=== PATIENT | female | born 1995 | race Caucasian/White ===

== ENCOUNTER → 2017-10-27 | Outpatient (CLI) | payer OTHER ==
[~2017-10-27] MED LIST: ALBU90OI INH; AMOCLA500 PO; AMPDEX10CR PO; AMPDEX5 PO; Adderall 20 MG20 MG PO; Amitriptyline H10 MG PO; Amoxicillin500 MG PO; Augmentin 875-1 EACH PO; BC IMPLANT; CEPH500 PO; CIPRO500 MG PO; CYCL10 PO; Clotrimazole-Be15 GM TP; Crutch1 EACH MISC; Cyclobenzaprine5 MG PO; DESV50 PO; DIPATR PO; DOXY100 PO; FLUC150A PO; GABA300 PO; HYDPAM25 PO; HYDR1TAB94 PO; IBUP600 PO; IBUP800 PO; Keflex500 MG PO; Kristalose20 GM PO; LIDO700A20 TOP; LOPE2C PO; LORA1 PO; MECL12.5 PO; METR500 PO; Minipress1 MG PO; NAPR500ERA PO; NAPROXEN PO; Naprosyn500 MG PO; Norco 10-325 T1 EACH PO; PRAZ1 PO; PRODEXEL PO; Percocet 5-3251 EACH PO; Prednisone20 MG PO; Pyridium200 MG PO; QUET200 PO; QUET25 PO; Robaxin500 MG PO; SERT50 PO; TRAM50 PO; TRAZ100 PO; TRAZ50; Valium5 MG PO; Vibramycin100 MG PO; Vistaril25 MG PO; ZYRTEC10 M1 PO; Zithromax250 MG PO; Zofran Odt4 MG PO; Zofran4 MG PO; [UNRECOGNIZED DRUG - OTHER] RC
[2017-10-27 15:26] LABS: BASOPHILS ABSOLUTE AUTO 0.09 K/mm3 (0.00-0.23); BASOPHILS PERCENT AUTO 1 % (0-2); EOSINOPHILS ABSOLUTE AUTO 0.56 K/mm3 (0.00-0.68); EOSINOPHILS PERCENT AUTO 6 % (0-6); Hematocrit 40.7 % (33.0-51.0); Hemoglobin 14.1 g/dL (11.5-16.0); IMMATURE GRAN ABSOLUTE AUTO 0.02 K/mm3 (0.00-0.10); IMMATURE GRAN PERCENT AUTO 0 % (0-1); LYMPHOCYTES ABSOLUTE AUTO 2.23 K/mm3 (0.84-5.20); LYMPHOCYTES PERCENT AUTO 23 % (21-46); MONOCYTES ABSOLUTE AUTO 0.61 K/mm3 (0.16-1.47); MONOCYTES PERCENT AUTO 6 % (4-13); Mean Corpuscular HGB 30.5 pg (26.0-34.0); Mean Corpuscular HGB Conc 34.6 g/dL (31.5-36.5); Mean Corpuscular Volume 88 fL (80-100); Mean Platelet Volume 10.9 fL (9.1-12.4); NEUTROPHILS ABSOLUTE AUTO 6.04 K/mm3 (1.96-9.15); NEUTROPHILS PERCENT AUTO 63 % (41-73); Platelet Count 229 K/mm3 (150-400); RDW Standard Deviation 41.4 fL (35.1-46.3); Red Blood Cell Count 4.63 M/mm3 (3.80-5.20); White Blood Cell Count 9.55 K/mm3 (4.00-11.30)
== END | disposition home or self-care (01) ==
LOC: LAB EV 15:23
PROVIDERS: Physician Assistant
DX: N39.0 Urinary tract infection, site not specified (principal); R10.31 Right lower quadrant pain
CPT/HCPCS: 85025; 87086

== ENCOUNTER 2017-10-30 12:23 | Emergency (ER) | payer OTHER ==
[~2017-10-30] VITALS: Ht 170.2 cm; Wt 120.2 kg
[~2017-10-30 12:23] MED LIST changes: -AMOCLA500 PO; -AMPDEX10CR PO; -Augmentin 875-1 EACH PO; -Cyclobenzaprine5 MG PO; -HYDPAM25 PO; -LIDO700A20 TOP; -LORA1 PO; -MECL12.5 PO; -NAPROXEN PO; -PRAZ1 PO; -Robaxin500 MG PO; -Valium5 MG PO
[2017-10-30 14:47] LABS: BASOPHILS ABSOLUTE AUTO 0.07 K/mm3 (0.00-0.23); BASOPHILS PERCENT AUTO 1 % (0-2); EOSINOPHILS ABSOLUTE AUTO 0.35 K/mm3 (0.00-0.68); EOSINOPHILS PERCENT AUTO 5 % (0-6); Hemoglobin 14.5 g/dL (11.5-16.0); IMMATURE GRAN ABSOLUTE AUTO 0.02 K/mm3 (0.00-0.10); IMMATURE GRAN PERCENT AUTO 0 % (0-1); LYMPHOCYTES ABSOLUTE AUTO 1.63 K/mm3 (0.84-5.20); LYMPHOCYTES PERCENT AUTO 22 % (21-46); MONOCYTES ABSOLUTE AUTO 0.56 K/mm3 (0.16-1.47); MONOCYTES PERCENT AUTO 8 % (4-13); Mean Corpuscular HGB Conc 33.7 g/dL (31.5-36.5); Mean Corpuscular Volume 89 fL (80-100); Mean Platelet Volume 10.5 fL (9.1-12.4); NEUTROPHILS ABSOLUTE AUTO 4.75 K/mm3 (1.96-9.15); NEUTROPHILS PERCENT AUTO 64 % (41-73); Platelet Count 215 K/mm3 (150-400); RDW Coefficient Variation 12.9 % (11.7-14.2); RDW Standard Deviation 42.3 fL (35.1-46.3); Red Blood Cell Count 4.83 M/mm3 (3.80-5.20); White Blood Cell Count 7.38 K/mm3 (4.00-11.30)
[2017-10-30 15:02] LABS: Alanine Aminotransfer (ALT/SGP 19 U/L (12-78); Alk Phos 79 U/L (50-136); Anion Gap 7 mmol/L (6-16); Aspartate Aminotrans (AST/SGOT 15 U/L (12-37); Bilirubin, Total 0.6 mg/dL (0.1-1.0); Blood Urea Nitrogen 10 mg/dL (8-24); Bun/Creatinine Ratio 10.8 (12.0-20.0); CO2, Blood 25 mmol/L (21-32); Calcium, Blood 9.4 mg/dL (8.5-10.1); Chloride, Blood 108 mmol/L (98-108); Creatinine, Blood 0.92 mg/dL (0.40-1.00); Globulin, Blood 3.9 g/dL (2.2-4.0); Glomerular Filtration Rate >60 (60-); Glucose, Blood 90 mg/dL (70-99); Potassium, Blood 3.8 mmol/L (3.5-5.5); Sodium, Blood 140 mmol/L (136-145); Total Protein, Blood 7.9 g/dL (6.4-8.2)
[2017-10-30] MEDS ORDERED: Valium5 MG PO (18:15)
[2017-10-30] MEDS ORDERED: MECL12.5 PO (18:15)
[2018-03-08] MEDS ORDERED: LORA1 PO (19:52)
[2018-03-08] MEDS ORDERED: Augmentin 875-1 EACH PO (21:20)
[2018-03-10] MEDS ORDERED: ALBU90OI INH (11:18)
[2018-03-10] MEDS ORDERED: NAPROXEN PO (11:21)
[2018-03-15] MEDS ORDERED: AMOCLA500 PO (09:15)
== END 2017-10-30 19:02 | disposition home or self-care (01) ==
LOC: ER 12:23
PROVIDERS: Physician Assistant
DX: S50.861A Insect bite (nonvenomous) of right forearm, initial encounter (principal); F32.9 Major depressive disorder, single episode, unspecified; F41.9 Anxiety disorder, unspecified; Z91.048 Other nonmedicinal substance allergy status; Z88.8 Allergy status to other drugs, medicaments and biological substances; Z79.899 Other long term (current) drug therapy; W57.XXXA Bitten or stung by nonvenomous insect and other nonvenomous arthropods, initial encounter
CPT/HCPCS: 36415; 80053; 85025; 99283; J3360

== ENCOUNTER 2017-12-04 16:39 | Emergency (ER) | payer OTHER ==
[~2017-12-04] VITALS: Ht 170.2 cm; Wt 74.8 kg
[~2017-12-04 16:39] MED LIST changes: +MECL12.5 PO; +Valium5 MG PO
[2018-03-08] MEDS ORDERED: LORA1 PO (19:52)
[2018-03-08] MEDS ORDERED: Augmentin 875-1 EACH PO (21:20)
[2018-03-10] MEDS ORDERED: ALBU90OI INH (11:18)
[2018-03-10] MEDS ORDERED: NAPROXEN PO (11:21)
[2018-03-15] MEDS ORDERED: AMOCLA500 PO (09:15)
== END 2017-12-04 18:49 | disposition home or self-care (01) ==
LOC: ER 16:39
DX: F90.9 Attention-deficit hyperactivity disorder, unspecified type (principal); F43.10 Post-traumatic stress disorder, unspecified; M79.7 Fibromyalgia; F32.9 Major depressive disorder, single episode, unspecified; F41.9 Anxiety disorder, unspecified; Z91.048 Other nonmedicinal substance allergy status; Z88.8 Allergy status to other drugs, medicaments and biological substances; Z79.899 Other long term (current) drug therapy
CPT/HCPCS: 93005; 93010; 99283

== ENCOUNTER 2017-12-06 04:09 | Emergency (ER) | payer OTHER ==
[~2017-12-06] VITALS: Ht 170.2 cm; Wt 120.2 kg
[2017-12-06] MEDS ORDERED: AMPDEX10CR PO (04:21)
[2017-12-06 05:06] LABS: Alanine Aminotransfer (ALT/SGP 16 U/L (12-78); Albumin, Blood 3.3 g/dL (3.4-5.0); Albumin/Globulin Ratio 0.9 (0.8-1.8); Alk Phos 74 U/L (50-136); Anion Gap 10 mmol/L (6-16); Aspartate Aminotrans (AST/SGOT 14 U/L (12-37); Bilirubin, Total 0.4 mg/dL (0.1-1.0); Blood Urea Nitrogen 14 mg/dL (8-24); Bun/Creatinine Ratio 16.3 (12.0-20.0); CO2, Blood 22 mmol/L (21-32); Calcium, Blood 8.1 mg/dL (8.5-10.1); Chloride, Blood 109 mmol/L (98-108); Creatinine, Blood 0.86 mg/dL (0.40-1.00); Globulin, Blood 3.7 g/dL (2.2-4.0); Glomerular Filtration Rate >60 (60-); Glucose, Blood 81 mg/dL (70-99); Potassium, Blood 3.3 mmol/L (3.5-5.5); Sodium, Blood 141 mmol/L (136-145)
[2017-12-06] MEDS ORDERED: Zofran Odt4 MG PO (05:08)
[2018-03-08] MEDS ORDERED: LORA1 PO (19:52)
[2018-03-08] MEDS ORDERED: Augmentin 875-1 EACH PO (21:20)
[2018-03-10] MEDS ORDERED: ALBU90OI INH (11:18)
[2018-03-10] MEDS ORDERED: NAPROXEN PO (11:21)
[2018-03-15] MEDS ORDERED: AMOCLA500 PO (09:15)
== END 2017-12-06 05:40 | disposition home or self-care (01) ==
LOC: ER 04:09
PROVIDERS: Emergency Medicine
DX: R11.2 Nausea with vomiting, unspecified (principal); R05 Cough; E87.6 Hypokalemia; Z88.8 Allergy status to other drugs, medicaments and biological substances; Z79.899 Other long term (current) drug therapy; F43.10 Post-traumatic stress disorder, unspecified; F32.9 Major depressive disorder, single episode, unspecified; F41.9 Anxiety disorder, unspecified
CPT/HCPCS: 36415; 80053; 96361; 96374; 99283; J1885; J7030

== ENCOUNTER 2017-12-10 02:51 | Emergency (ER) | payer OTHER ==
[~2017-12-10] VITALS: Ht 170.2 cm; Wt 121.6 kg
[~2017-12-10 02:51] MED LIST changes: +AMPDEX10CR PO
[2018-03-08] MEDS ORDERED: LORA1 PO (19:52)
[2018-03-08] MEDS ORDERED: Augmentin 875-1 EACH PO (21:20)
[2018-03-10] MEDS ORDERED: ALBU90OI INH (11:18)
[2018-03-10] MEDS ORDERED: NAPROXEN PO (11:21)
[2018-03-15] MEDS ORDERED: AMOCLA500 PO (09:15)
== END 2017-12-10 03:34 | disposition home or self-care (01) ==
LOC: ER 02:51
DX: J06.9 Acute upper respiratory infection, unspecified (principal); R42 Dizziness and giddiness; T40.2X5A Adverse effect of other opioids, initial encounter; Z88.8 Allergy status to other drugs, medicaments and biological substances; Z79.899 Other long term (current) drug therapy; F43.10 Post-traumatic stress disorder, unspecified; F32.9 Major depressive disorder, single episode, unspecified; F41.9 Anxiety disorder, unspecified
CPT/HCPCS: 99283

== ENCOUNTER → 2018-02-01 | Outpatient (CLI) | payer OTHER ==
[2018-02-03 20:22] LABS: Alpha Hyrdroxyalprazolam Not Detected (NOTDET); Alpha hydroxytriazolam Not Detected (NOTDET); Alprazolam Not Detected (NOTDET); Confirm Clonazepam LC/MS Not Detected (NOTDET); Confirm Flunitrazepam LC/MS Not Detected (NOTDET); Diazepam Not Detected (NOTDET); Flurazepam Not Detected (NOTDET); Lorazepam Not Detected (NOTDET); Midazolam Not Detected (NOTDET); Temazepam 68.8 ng/mL (NOTDET)
== END ==
LOC: LAB SHORT 18:20 → LAB 18:20
PROVIDERS: Registered Nurse Psychiatric/Mental Health
DX: Z51.81 Encounter for therapeutic drug level monitoring (principal); Z79.899 Other long term (current) drug therapy
CPT/HCPCS: G0480

== ENCOUNTER 2018-02-08 18:19 | Emergency (ER) | payer OTHER ==
[~2018-02-08] VITALS: Ht 170.2 cm; Wt 121.6 kg
[2018-02-08] MEDS ORDERED: HYDPAM25 PO (19:54)
[2018-02-08] MEDS ORDERED: PRAZ1 PO (19:55)
[2018-02-08 20:44] LABS: BASOPHILS ABSOLUTE AUTO 0.11 K/mm3 (0.00-0.23); BASOPHILS PERCENT AUTO 1 % (0-2); EOSINOPHILS ABSOLUTE AUTO 0.65 K/mm3 (0.00-0.68); EOSINOPHILS PERCENT AUTO 6 % (0-6); Hematocrit 42.6 % (33.0-51.0); Hemoglobin 14.1 g/dL (11.5-16.0); IMMATURE GRAN ABSOLUTE AUTO 0.02 K/mm3 (0.00-0.10); IMMATURE GRAN PERCENT AUTO 0 % (0-1); LYMPHOCYTES ABSOLUTE AUTO 2.66 K/mm3 (0.84-5.20); LYMPHOCYTES PERCENT AUTO 26 % (21-46); MONOCYTES ABSOLUTE AUTO 0.72 K/mm3 (0.16-1.47); MONOCYTES PERCENT AUTO 7 % (4-13); Mean Corpuscular HGB 29.7 pg (26.0-34.0); Mean Corpuscular HGB Conc 33.1 g/dL (31.5-36.5); Mean Corpuscular Volume 90 fL (80-100); Mean Platelet Volume 10.8 fL (9.1-12.4); NEUTROPHILS ABSOLUTE AUTO 6.02 K/mm3 (1.96-9.15); NEUTROPHILS PERCENT AUTO 59 % (41-73); Platelet Count 252 K/mm3 (150-400); RDW Coefficient Variation 14.6 % (11.7-14.2); RDW Standard Deviation 47.8 fL (35.1-46.3); Red Blood Cell Count 4.74 M/mm3 (3.80-5.20); White Blood Cell Count 10.18 K/mm3 (4.00-11.30)
[2018-02-08 21:01] LABS: Alanine Aminotransfer (ALT/SGP 22 U/L (12-78); Albumin, Blood 4.2 g/dL (3.4-5.0); Albumin/Globulin Ratio 1.1 (0.8-1.8); Alk Phos 87 U/L (50-136); Anion Gap 8 mmol/L (6-16); Aspartate Aminotrans (AST/SGOT 17 U/L (12-37); Bilirubin, Total 0.3 mg/dL (0.1-1.0); Blood Urea Nitrogen 16 mg/dL (8-24); Bun/Creatinine Ratio 17.6 (12.0-20.0); CO2, Blood 23 mmol/L (21-32); Calcium, Blood 9.4 mg/dL (8.5-10.1); Chloride, Blood 110 mmol/L (98-108); Creatinine, Blood 0.91 mg/dL (0.40-1.00); Globulin, Blood 3.7 g/dL (2.2-4.0); Glomerular Filtration Rate >60 (60-); Glucose, Blood 80 mg/dL (70-99); Potassium, Blood 4.2 mmol/L (3.5-5.5); Sodium, Blood 141 mmol/L (136-145); Total Protein, Blood 7.9 g/dL (6.4-8.2)
[2018-02-08] MEDS ORDERED: IBUP800 PO (23:45)
[2018-02-08] MEDS ORDERED: LIDO700A20 TOP (23:45)
[2018-02-08] MEDS ORDERED: Robaxin500 MG PO (23:45)
== END 2018-02-09 00:10 | disposition home or self-care (01) ==
LOC: ER 18:19
PROVIDERS: Nurse Practitioner Family
DX: N83.202 Unspecified ovarian cyst, left side (principal); M54.5 Low back pain; W19.XXXA Unspecified fall, initial encounter; Z88.8 Allergy status to other drugs, medicaments and biological substances; Z91.048 Other nonmedicinal substance allergy status; Z79.899 Other long term (current) drug therapy; F43.10 Post-traumatic stress disorder, unspecified; F32.9 Major depressive disorder, single episode, unspecified; F41.9 Anxiety disorder, unspecified
CPT/HCPCS: 36415; 72100; 76856; 80053; 81000; 81025; 85025; 96374; 99284; J1885

== ENCOUNTER 2018-03-08 18:34 | Emergency (ER) | END 2018-03-08 21:28 | disposition home or self-care (01) ==

== ENCOUNTER → 2018-03-17 | Outpatient (CLI) | payer OTHER ==
[~2018-03-17] MED LIST changes: +AMOCLA500 PO; +Augmentin 875-1 EACH PO; +HYDPAM25 PO; +LIDO700A20 TOP; +LORA1 PO; +NAPROXEN PO; +PRAZ1 PO; +Robaxin500 MG PO
[2018-03-17 10:37] LABS: Source, Urine Clean Catch
[2018-03-17 12:44] LABS: Appearance, Urine Clear (Clear); Bilirubin, Urine Neg (Neg); Blood, Urine 1+ (Neg); Color, Urine Yellow (P-Yellow); Glucose Qualitative, Urine Neg (Neg); Ketones, Urine Neg (Neg); Leukocyte Esterase, Urine Neg (Neg); Nitrite, Urine Neg (Neg); Protein, Urine Neg (Neg); Specific Gravity, Urine 1.015 (1.003-1.022); Urobilinogen, Urine NORM (Normal)
[2018-03-17 13:55] LABS: Bacteria Few /hpf; Squamous Epithelial Cells Few /hpf (Few); White Blood Cells, Urine 0-2 /hpf (0-5)
== END | disposition home or self-care (01) ==
LOC: LAB 08:48 → LAB SHORT 08:48
PROVIDERS: Obstetrics & Gynecology
DX: R30.0 Dysuria (principal)
CPT/HCPCS: 81001

== ENCOUNTER 2018-07-11 17:16 | Emergency (ER) | payer OTHER ==
[~2018-07-11] VITALS: Ht 170.2 cm; Wt 122.5 kg
[2018-07-11] MEDS ORDERED: GABA300 PO (18:25)
[2018-07-11] MEDS ORDERED: Cyclobenzaprine5 MG PO (18:35)
[2018-07-11] MEDS ORDERED: Pyridium200 MG PO (18:35)
[2018-07-11] MEDS ORDERED: CEPH500 PO (18:35)
[2018-07-11 18:43] LABS: Source, Urine Clean Catch
[2018-07-11 18:55] LABS: Appearance, Urine Clear (Clear); Bilirubin, Urine Neg (Neg); Blood, Urine Neg (Neg); Color, Urine Yellow (P-Yellow); Glucose Qualitative, Urine Neg (Neg); Ketones, Urine 1+ (Neg); Leukocyte Esterase, Urine 1+ (Neg); Nitrite, Urine Neg (Neg); Protein, Urine Neg (Neg); Specific Gravity, Urine 1.025 (1.003-1.022); Urobilinogen, Urine NORM (Normal)
[2018-07-11 19:11] LABS: White Blood Cells, Urine 0-2 /hpf (0-5)
[2018-07-11 19:12] LABS: Bacteria Rare /hpf; Red Blood Cells, Urine Not Seen /hpf (0-2); Squamous Epithelial Cells Few /hpf (Few)
== END 2018-07-11 18:45 | disposition home or self-care (01) ==
LOC: ER 17:16
PROVIDERS: Physician Assistant
DX: R30.0 Dysuria (principal); F41.9 Anxiety disorder, unspecified; F32.9 Major depressive disorder, single episode, unspecified; Z88.8 Allergy status to other drugs, medicaments and biological substances; Z91.048 Other nonmedicinal substance allergy status; Z91.018 Allergy to other foods; Z79.899 Other long term (current) drug therapy; Z87.891 Personal history of nicotine dependence
CPT/HCPCS: 81000; 81001; 81025; 87086; 99284

== ENCOUNTER 2018-10-12 15:23 | Emergency (ER) | payer OTHER ==
[~2018-10-12] VITALS: Ht 170.2 cm; Wt 122.0 kg
[~2018-10-12 15:23] MED LIST changes: +Cyclobenzaprine5 MG PO
[2018-10-12] MEDS ORDERED: PRAZ2 PO (16:16)
== END 2018-10-12 18:24 | disposition home or self-care (01) ==
LOC: ER 15:23
DX: E86.0 Dehydration (principal); Z91.19 Patient's noncompliance with other medical treatment and regimen; F43.10 Post-traumatic stress disorder, unspecified; G43.909 Migraine, unspecified, not intractable, without status migrainosus; Z87.891 Personal history of nicotine dependence; Z79.899 Other long term (current) drug therapy
CPT/HCPCS: 96360; 99283-25; J7030

== ENCOUNTER 2018-12-20 21:48 | Emergency (ER) | payer OTHER ==
[~2018-12-20] VITALS: Ht 170.2 cm; Wt 122.5 kg
[~2018-12-20 21:48] MED LIST changes: +PRAZ2 PO
[2018-12-21 00:05] LABS: Bilirubin, Urine Neg (Neg); Blood, Urine 1+ (Neg); Glucose Qualitative, Urine Neg (Neg); Ketones, Urine 3+ (Neg); Leukocyte Esterase, Urine 1+ (Neg); Nitrite, Urine Neg (Neg); Protein, Urine 1+ (Neg); Source, Urine Clean Catch; Specific Gravity, Urine 1.025 (1.003-1.022); Urobilinogen, Urine NORM (Normal)
[2018-12-21 00:10] LABS: Appearance, Urine Hazy (Clear); Color, Urine Yellow (P-Yellow)
[2018-12-21 00:11] LABS: Bacteria Mod /hpf; Red Blood Cells, Urine 0-2 /hpf (0-2); Squamous Epithelial Cells Many /hpf (Few); White Blood Cells, Urine 0-2 /hpf (0-5)
[2018-12-21 00:55] LABS: Calcium, Ionized (POC) 1.16 mmol/L (1.10-1.46); Chloride (POC) 104 mmol/L (98-108); Glucose (ISTAT POC) 79 mg/dL (70-99); Hemoglobin (POC) 15.3 g/dL (12.0-16.0); Potassium (POC) 3.5 mmol/L (3.5-5.5); Sodium (POC) 142 mmol/L (135-148); Total CO2 (POC) 23 mmol/L (21-32)
== END 2018-12-21 01:26 | disposition home or self-care (01) ==
LOC: ER 21:48
PROVIDERS: Emergency Medicine
DX: E86.0 Dehydration (principal); R10.9 Unspecified abdominal pain; R19.7 Diarrhea, unspecified; Z91.048 Other nonmedicinal substance allergy status; Z91.018 Allergy to other foods; Z88.8 Allergy status to other drugs, medicaments and biological substances; Z79.899 Other long term (current) drug therapy; F43.10 Post-traumatic stress disorder, unspecified; F32.9 Major depressive disorder, single episode, unspecified; F41.9 Anxiety disorder, unspecified; F17.210 Nicotine dependence, cigarettes, uncomplicated
CPT/HCPCS: 36415; 80047; 81001; 81025; 85014; 96360; 99283-25; J7030

== ENCOUNTER 2019-02-21 15:29 | Emergency (ER) | payer OTHER ==
[~2019-02-21] VITALS: Ht 170.2 cm; Wt 117.9 kg
[2019-02-21] MEDS ORDERED: Silvadene20 GM TOP (17:09)
== END 2019-02-21 17:15 | disposition home or self-care (01) ==
LOC: ER 15:29
DX: L55.1 Sunburn of second degree (principal); F32.9 Major depressive disorder, single episode, unspecified; F41.9 Anxiety disorder, unspecified; F43.10 Post-traumatic stress disorder, unspecified; F17.210 Nicotine dependence, cigarettes, uncomplicated; Z91.048 Other nonmedicinal substance allergy status; Z88.8 Allergy status to other drugs, medicaments and biological substances; Z91.018 Allergy to other foods; Z79.899 Other long term (current) drug therapy
CPT/HCPCS: 99282

== ENCOUNTER 2019-03-14 09:49 | Emergency (ER) | payer OTHER ==
[~2019-03-14] VITALS: Ht 170.2 cm; Wt 120.2 kg
[~2019-03-14 09:49] MED LIST changes: +GABA600 PO; +Macrobid 100 M100 MG PO; +QUET300 PO; +Silvadene20 GM TOP
[2019-03-14] MEDS ORDERED: HYDPAM50 PO (12:42)
[2019-03-14] MEDS ORDERED: Flagyl500 MG PO (13:41)
== END 2019-03-14 14:05 | disposition home or self-care (01) ==
LOC: ER 09:49
DX: T74.21XA Adult sexual abuse, confirmed, initial encounter (principal); F32.9 Major depressive disorder, single episode, unspecified; F41.9 Anxiety disorder, unspecified; F17.210 Nicotine dependence, cigarettes, uncomplicated; Z88.8 Allergy status to other drugs, medicaments and biological substances; Z91.018 Allergy to other foods; Z79.899 Other long term (current) drug therapy
CPT/HCPCS: A9270-GY; J0696

== ENCOUNTER 2019-05-21 14:13 | Emergency (ER) | payer OTHER ==
[~2019-05-21] VITALS: Ht 170.2 cm; Wt 126.1 kg
[~2019-05-21 14:13] MED LIST changes: +Flagyl500 MG PO; +HYDPAM50 PO
[2019-05-21] MEDS ORDERED: GABA300 PO (15:08)
[2019-05-21] MEDS ORDERED: Robaxin-750750 MG PO (15:45)
[2019-05-21] MEDS ORDERED: IBUP800 PO (15:45)
[2019-05-21] MEDS ORDERED: LIDO700A20 TOP (15:45)
[2019-05-30] MEDS ORDERED: RALT400 PO (00:04)
[2019-05-30] MEDS ORDERED: TENO300 PO (00:04)
== END 2019-05-21 16:02 | disposition home or self-care (01) ==
LOC: ER 14:13
DX: M25.511 Pain in right shoulder (principal); F32.9 Major depressive disorder, single episode, unspecified; F41.9 Anxiety disorder, unspecified; F43.10 Post-traumatic stress disorder, unspecified; F17.210 Nicotine dependence, cigarettes, uncomplicated; Z88.8 Allergy status to other drugs, medicaments and biological substances; Z91.018 Allergy to other foods; Z79.899 Other long term (current) drug therapy; Y93.64 Activity, baseball
CPT/HCPCS: 73030; 99283-25

== ENCOUNTER 2019-05-29 20:55 | Emergency (ER) | payer OTHER ==
[~2019-05-29] VITALS: Ht 170.2 cm; Wt 122.5 kg
[~2019-05-29 20:55] MED LIST changes: +Robaxin-750750 MG PO
[2019-05-29 22:55] LABS: Source, Urine Clean Catch
[2019-05-29 22:59] LABS: Bilirubin, Urine Neg (Neg); Blood, Urine Neg (Neg); Glucose Qualitative, Urine Neg (Neg); Ketones, Urine 1+ (Neg); Leukocyte Esterase, Urine 3+ (Neg); Nitrite, Urine Neg (Neg); Protein, Urine 1+ (Neg); Specific Gravity, Urine 1.025 (1.003-1.022); Urobilinogen, Urine NORM (Normal)
[2019-05-29] MEDS ORDERED: TIVICAY50 MG PO (23:01)
[2019-05-29] MEDS ORDERED: TENO300 PO (23:01)
[2019-05-29 23:08] LABS: Appearance, Urine Hazy (Clear); Color, Urine Yellow (P-Yellow)
[2019-05-29 23:09] LABS: Bacteria Many /hpf; Red Blood Cells, Urine Not Seen /hpf (0-2); Squamous Epithelial Cells Mod /hpf (Few); White Blood Cells, Urine 25-50 /hpf (0-5)
[2019-05-29 23:15] LABS: U Amphetamine Screen DETECTED; U Barbituate Screen Not Detected; U Benzodiazapine Screen Not Detected; U Buprenorphine Screen Not Detected; U Cannabinoids Screen Not Detected; U Cocaine Screen Not Detected; U Methadone Screen Not Detected; U Methamphetamine Screen DETECTED; U Opiates Screen Not Detected; U Oxycodone Screen Not Detected; U Phencyclidine Screen Not Detected; U Propoxyphene Screen Not Detected
[2019-05-30] MEDS ORDERED: TENO300 PO (00:04)
[2019-05-30] MEDS ORDERED: RALT400 PO (00:04)
== END 2019-05-29 23:55 | disposition home or self-care (01) ==
LOC: ER 20:55
PROVIDERS: Emergency Medicine
DX: T74.21XA Adult sexual abuse, confirmed, initial encounter (principal); Z88.8 Allergy status to other drugs, medicaments and biological substances; Z91.018 Allergy to other foods; Z79.899 Other long term (current) drug therapy; F43.10 Post-traumatic stress disorder, unspecified; F32.9 Major depressive disorder, single episode, unspecified; F41.9 Anxiety disorder, unspecified; J45.909 Unspecified asthma, uncomplicated; F17.210 Nicotine dependence, cigarettes, uncomplicated
CPT/HCPCS: 81001; 81025; 87086; 99285

== ENCOUNTER 2019-06-02 13:08 | Emergency (ER) | payer OTHER ==
[~2019-06-02] VITALS: Ht 170.2 cm; Wt 124.7 kg
[~2019-06-02 13:08] MED LIST changes: +RALT400 PO; +TENO300 PO; +TIVICAY50 MG PO
== END 2019-06-02 13:46 | disposition home or self-care (01) ==
LOC: ER 13:08
DX: M25.511 Pain in right shoulder (principal); F17.210 Nicotine dependence, cigarettes, uncomplicated
CPT/HCPCS: 99283

== ENCOUNTER 2019-09-08 14:45 | Emergency (ER) | payer OTHER ==
[~2019-09-08] VITALS: Ht 175.3 cm; Wt 99.8 kg
[2019-09-08] MEDS ORDERED: VENL25 (15:06)
[2019-09-08] MEDS ORDERED: Amoxicillin500 MG PO (15:08)
== END 2019-09-08 15:30 | disposition home or self-care (01) ==
LOC: ER 14:45
DX: K02.9 Dental caries, unspecified (principal); K03.81 Cracked tooth; F32.9 Major depressive disorder, single episode, unspecified; F41.9 Anxiety disorder, unspecified; J45.909 Unspecified asthma, uncomplicated; F17.200 Nicotine dependence, unspecified, uncomplicated; Z79.899 Other long term (current) drug therapy
CPT/HCPCS: 96372; 99282-25; J1885

== ENCOUNTER → 2019-10-11 | Outpatient (CLI) | payer OTHER ==
[~2019-10-11] MED LIST changes: +MOTRIN IB200 MG PO; +VENL25
[2019-10-11 14:50] LABS: U Amphetamine Screen Not Detected; U Barbituate Screen Not Detected; U Benzodiazapine Screen Not Detected; U Buprenorphine Screen Not Detected; U Cannabinoids Screen DETECTED; U Cocaine Screen Not Detected; U Methadone Screen Not Detected; U Methamphetamine Screen Not Detected; U Opiates Screen Not Detected; U Oxycodone Screen Not Detected; U Phencyclidine Screen Not Detected; U Propoxyphene Screen Not Detected
== END ==
LOC: LAB 13:16 → LAB SHORT 13:16
PROVIDERS: Registered Nurse
DX: Z51.81 Encounter for therapeutic drug level monitoring (principal); Z79.899 Other long term (current) drug therapy

== ENCOUNTER 2019-10-24 15:08 | Emergency (ER) | payer OTHER ==
[~2019-10-24] VITALS: Ht 170.2 cm; Wt 118.4 kg
[~2019-10-24 15:08] MED LIST changes: -MOTRIN IB200 MG PO
[2019-10-24 16:06] LABS: BASOPHILS ABSOLUTE AUTO 0.05 K/mm3 (0.00-0.23); BASOPHILS PERCENT AUTO 1 % (0-2); EOSINOPHILS ABSOLUTE AUTO 0.37 K/mm3 (0.00-0.68); EOSINOPHILS PERCENT AUTO 7 % (0-6); Hematocrit 46.1 % (33.0-51.0); Hemoglobin 15.4 g/dL (11.5-16.0); IMMATURE GRAN ABSOLUTE AUTO 0.01 K/mm3 (0.00-0.10); IMMATURE GRAN PERCENT AUTO 0 % (0-1); LYMPHOCYTES ABSOLUTE AUTO 1.27 K/mm3 (0.84-5.20); LYMPHOCYTES PERCENT AUTO 23 % (21-46); MONOCYTES ABSOLUTE AUTO 0.71 K/mm3 (0.16-1.47); MONOCYTES PERCENT AUTO 13 % (4-13); Mean Corpuscular HGB 30.4 pg (26.0-34.0); Mean Corpuscular HGB Conc 33.4 g/dL (31.5-36.5); Mean Corpuscular Volume 91 fL (80-100); Mean Platelet Volume 11.4 fL (9.1-12.4); NEUTROPHILS ABSOLUTE AUTO 3.14 K/mm3 (1.96-9.15); NEUTROPHILS PERCENT AUTO 57 % (41-73); Platelet Count 174 K/mm3 (150-400); RDW Coefficient Variation 13.9 % (11.7-14.2); RDW Standard Deviation 46.8 fL (35.1-46.3); Red Blood Cell Count 5.07 M/mm3 (3.80-5.20); White Blood Cell Count 5.55 K/mm3 (4.00-11.30)
[2019-10-24 16:33] LABS: Alanine Aminotransfer (ALT/SGP 23 U/L (12-78); Albumin, Blood 3.6 g/dL (3.4-5.0); Albumin/Globulin Ratio 0.8 (0.8-1.8); Alk Phos 85 U/L (50-136); Anion Gap 9 mmol/L (6-16); Aspartate Aminotrans (AST/SGOT 23 U/L (12-37); Bilirubin, Total 0.4 mg/dL (0.1-1.0); Blood Urea Nitrogen 8 mg/dL (8-24); Bun/Creatinine Ratio 10.1 (12.0-20.0); CO2, Blood 20 mmol/L (21-32); Calcium, Blood 8.3 mg/dL (8.5-10.1); Chloride, Blood 107 mmol/L (98-108); Globulin, Blood 4.3 g/dL (2.2-4.0); Glomerular Filtration Rate >60 (60-); Glucose, Blood 94 mg/dL (70-99); Potassium, Blood 5.3 mmol/L (3.5-5.5); Sodium, Blood 136 mmol/L (136-145); Total Protein, Blood 7.9 g/dL (6.4-8.2)
[2019-10-24] MEDS ORDERED: ALBU90OI INH (19:37)
[2019-10-24] MEDS ORDERED: MOTRIN IB200 MG PO (19:37)
== END 2019-10-24 19:54 | disposition home or self-care (01) ==
LOC: ER 15:08
PROVIDERS: Physician Assistant
DX: J40 Bronchitis, not specified as acute or chronic (principal); M79.10 Myalgia, unspecified site; Z91.018 Allergy to other foods; Z88.8 Allergy status to other drugs, medicaments and biological substances; Z79.899 Other long term (current) drug therapy; F31.9 Bipolar disorder, unspecified; F17.210 Nicotine dependence, cigarettes, uncomplicated
CPT/HCPCS: 36415; 71046; 80053; 84484; 85025; 93005; 93010; 96360-59; 99284-25; J7030

== ENCOUNTER 2022-10-01 11:50 | Emergency (ER) | payer OTHER ==
[~2022-10-01] VITALS: Ht 172.7 cm; Wt 99.8 kg
[~2022-10-01 11:50] MED LIST changes: +MOTRIN IB200 MG PO
[2022-10-01] MEDS ORDERED: ONDA4ODT MM (13:07)
== END 2022-10-01 13:17 | disposition home or self-care (01) ==
LOC: ER 11:50
DX: R11.2 Nausea with vomiting, unspecified (principal); R19.7 Diarrhea, unspecified; J45.909 Unspecified asthma, uncomplicated; F17.210 Nicotine dependence, cigarettes, uncomplicated; Z88.8 Allergy status to other drugs, medicaments and biological substances; Z91.018 Allergy to other foods; Z91.048 Other nonmedicinal substance allergy status; Z79.899 Other long term (current) drug therapy
CPT/HCPCS: A9270

== ENCOUNTER 2022-10-02 20:41 | Emergency (ER) | payer MEDICARE, OTHER ==
[~2022-10-02] VITALS: Ht 172.7 cm; Wt 113.4 kg
[~2022-10-02 20:41] MED LIST changes: +ONDA4ODT MM
== END 2022-10-02 22:55 | disposition home or self-care (01) ==
LOC: ER 20:41
DX: L02.31 Cutaneous abscess of buttock (principal); J45.909 Unspecified asthma, uncomplicated; F17.210 Nicotine dependence, cigarettes, uncomplicated; Z88.8 Allergy status to other drugs, medicaments and biological substances; Z91.018 Allergy to other foods; Z91.09 Other allergy status, other than to drugs and biological substances; Z79.899 Other long term (current) drug therapy
CPT/HCPCS: 10061; 99282-25

== ENCOUNTER → 2023-08-30 | Outpatient (CLI) | payer OTHER ==
[2023-08-30 14:29] LABS: BASOPHILS PERCENT AUTO 1 % (0-2); EOSINOPHILS ABSOLUTE AUTO 0.69 K/mm3 (0.00-0.68); EOSINOPHILS PERCENT AUTO 7 % (0-6); Hematocrit 56.8 % (37.0-53.0); Hemoglobin 19.5 g/dL (13.5-17.5); IMMATURE GRAN ABSOLUTE AUTO 0.02 K/mm3 (0.00-0.10); IMMATURE GRAN PERCENT AUTO 0 % (0-1); LYMPHOCYTES ABSOLUTE AUTO 2.67 K/mm3 (0.84-5.20); LYMPHOCYTES PERCENT AUTO 28 % (21-46); MONOCYTES ABSOLUTE AUTO 0.81 K/mm3 (0.16-1.47); MONOCYTES PERCENT AUTO 8 % (4-13); Mean Corpuscular HGB 31.7 pg (26.0-34.0); Mean Corpuscular HGB Conc 34.3 g/dL (31.5-36.5); Mean Corpuscular Volume 92 fL (80-100); Mean Platelet Volume 10.3 fL (9.1-12.4); NEUTROPHILS PERCENT AUTO 55 % (41-73); Platelet Count 222 K/mm3 (150-400); RDW Coefficient Variation 14.7 % (11.7-14.2); RDW Standard Deviation 48.1 fL (35.1-46.3); Red Blood Cell Count 6.15 M/mm3 (4.30-5.90); White Blood Cell Count 9.59 K/mm3 (4.00-11.30)
[2023-08-30 14:42] LABS: Bun/Creatinine Ratio 8.7 (12.0-20.0); Calcium, Blood 9.1 mg/dL (8.5-10.1); Creatinine, Blood 1.26 mg/dL (0.60-1.20); Potassium, Blood 3.8 mmol/L (3.5-5.5); Thyroid Stimulating Hormone 2.075 uIU/mL (0.360-4.800)
== END ==
LOC: LAB SHORT 14:18 → LAB 14:18
PROVIDERS: Physician Assistant Surgical
DX: R55 Syncope and collapse (principal); R53.83 Other fatigue
CPT/HCPCS: 80048; 84443; 85025

== ENCOUNTER 2023-10-22 17:42 | Emergency (ER) | payer BC, OTHER ==
[~2023-10-22] VITALS: Ht 172.7 cm; Wt 113.4 kg
[2023-10-22 17:43] VITALS: BP 143/84
== END 2023-10-22 20:09 | disposition home or self-care (01) ==
LOC: ER 17:42
DX: S61.011A Laceration without foreign body of right thumb without damage to nail, initial encounter (principal); J45.909 Unspecified asthma, uncomplicated; F17.210 Nicotine dependence, cigarettes, uncomplicated; M79.7 Fibromyalgia; Z79.899 Other long term (current) drug therapy; Z88.8 Allergy status to other drugs, medicaments and biological substances; Z91.018 Allergy to other foods; W26.0XXA Contact with knife, initial encounter; Y93.89 Activity, other specified
CPT/HCPCS: 12001; 99282-25

== ENCOUNTER 2023-10-29 12:20 | Day surgery (SDC) | payer BC, OTHER ==
[~2023-10-29] VITALS: Ht 172.7 cm; Wt 113.1 kg
[2023-10-29] MEDS ORDERED: LAMO100 PO (13:12)
[2023-10-29] MEDS ORDERED: DEPO-TESTO200 MG/1 M IM (13:12)
[2023-10-29 13:30] VITALS: BP 150/89
--- NOTE | 2023-10-29 19:39 | NUR ---
LATE ENTRY: 1829 ASSUMED CARE OF PATIENT IN PACU TO AWAIT PROCEDURE. PREVIOUS CASE RUNNING VERY BEHIND SCHEDULE. PT MADE AWARE AND COMFORTABLE. 1849: OTHER CASE STILL IN PROCEDURE, PT AND SURGEON NOTIFIED AND AGREED TO RESCHEDULE THIS ELECTIVE CASE. PT VERY UNDERSTANDING. BELONGINGS RETURNED AND IV X2 DC WNL FROM LEFT HAND AND AC. PT WAS ESCORTED OUT OF THE HOSPITAL WITH FAMILY. ADVISED TO FOLLOW UP WITH SURGEON TOMORROW MORNING.
== END 2023-10-29 22:52 | disposition home or self-care (01) ==
LOC: ORD 12:20 → ORSCMMR 12:20 → ORD 22:52
DX: S66.121A Laceration of flexor muscle, fascia and tendon of left index finger at wrist and hand level, initial encounter (principal); S61.011A Laceration without foreign body of right thumb without damage to nail, initial encounter; Z53.9 Procedure and treatment not carried out, unspecified reason
CPT/HCPCS: 84703; J0690; J7120

== ENCOUNTER 2023-11-02 07:45 | Day surgery (SDC) | payer BC, OTHER ==
[~2023-11-02] VITALS: Ht 172.7 cm; Wt 113.3 kg
[~2023-11-02 07:45] MED LIST changes: +DEPO-TESTO200 MG/1 M IM; +LAMO100 PO
--- NOTE | 2023-11-02 09:35 | NUR ---
11/02/23 0935 Abbie Farmer BREATHING TREATMENT ([id number]) GIVEN PRE-OP PER ORDERS
--- NOTE | 2023-11-02 10:05 | NUR ---
11/02/23 Morris5 Nicanor Zamora ROPIVACAINE 0.5% 20 MLS MIXED & VERIFIED WITH EPI 0.1 MLS (1MG/ML), PER ORDER, TO MAKE ROPIVACAINE 0.5% 1:200,[address] FOR INJECTION [address] [facility].
--- NOTE | 2023-11-02 17:00 | NUR ---
11/02/23 1700 Buddy Ramírez IV REMOVED INTACT. SITE WNL. PT REPORTED 3/10 TOLERABLE PAIN PRIOR TO IV REMOVAL AND DENIED NAUSEA. HE APPEARED RELAXED AND TALKATIVE.
[2023-11-02 17:02] VITALS: BP 129/86
--- NOTE | 2023-11-02 17:07 | NUR ---
11/02/23 1707 Buddy Ramírez PT FREQUENTLY THRASHING AND WAVING ARMS IN PACU.
== END 2023-11-02 12:55 | disposition home or self-care (01) ==
LOC: ORSCSDS 07:45
PROVIDERS: Orthopaedic Surgery Sports Medicine
PROC: 01Q60ZZ Repair Radial Nerve, Open Approach (ICD-10-PCS; principal; 2023-11-02 09:30)
DX: S61.011A Laceration without foreign body of right thumb without damage to nail, initial encounter (principal); W26.0XXA Contact with knife, initial encounter; J45.909 Unspecified asthma, uncomplicated; F31.9 Bipolar disorder, unspecified; F41.9 Anxiety disorder, unspecified; Z79.899 Other long term (current) drug therapy; F17.210 Nicotine dependence, cigarettes, uncomplicated
CPT/HCPCS: J0171; J0690; J1100; J1885; J2250; J2704; J2795; J3010; J7120

== ENCOUNTER → 2024-09-21 | Outpatient (CLI) | payer OTHER | LOC: LAB SHORT 15:15 → LAB 15:15 | DX: R30.0 Dysuria (principal) | CPT/HCPCS: 87086 ==

== ENCOUNTER 2024-10-16 00:26 | Emergency (ER) | payer OTHER ==
[~2024-10-16] VITALS: Ht 172.7 cm; Wt 114.8 kg
[2024-10-16 01:11] LABS: BASOPHILS ABSOLUTE AUTO 0.09 K/mm3 (0.00-0.23); BASOPHILS PERCENT AUTO 1 % (0-2); EOSINOPHILS ABSOLUTE AUTO 0.48 K/mm3 (0.00-0.68); EOSINOPHILS PERCENT AUTO 5 % (0-6); Hemoglobin 17.8 g/dL (13.5-17.5); IMMATURE GRAN ABSOLUTE AUTO 0.02 K/mm3 (0.00-0.10); IMMATURE GRAN PERCENT AUTO 0 % (0-1); LYMPHOCYTES ABSOLUTE AUTO 2.54 K/mm3 (0.84-5.20); LYMPHOCYTES PERCENT AUTO 27 % (21-46); MONOCYTES ABSOLUTE AUTO 0.73 K/mm3 (0.16-1.47); MONOCYTES PERCENT AUTO 8 % (4-13); Mean Corpuscular HGB 30.3 pg (26.0-34.0); Mean Corpuscular HGB Conc 34.9 g/dL (31.5-36.5); Mean Corpuscular Volume 87 fL (80-100); Mean Platelet Volume 10.1 fL (9.1-12.4); NEUTROPHILS PERCENT AUTO 59 % (41-73); Platelet Count 222 K/mm3 (150-400); RDW Coefficient Variation 14.2 % (11.7-14.2); RDW Standard Deviation 45.5 fL (35.1-46.3); Red Blood Cell Count 5.87 M/mm3 (4.30-5.90); White Blood Cell Count 9.36 K/mm3 (4.00-11.30)
[2024-10-16 01:34] LABS: Bilirubin, Total 0.5 mg/dL (0.1-1.0); Bun/Creatinine Ratio 16.2 (12.0-20.0); Calcium, Blood 9.1 mg/dL (8.5-10.1); Creatinine, Blood 1.11 mg/dL (0.60-1.20); Potassium, Blood 3.7 mmol/L (3.5-5.5)
[2024-10-16] MEDS ORDERED: Ipratropium/Albuterol SulF 2.5-0.5MG/3 ML Amp INH ONE (03:50)
[2024-10-16] MEDS ORDERED: HYDHCL25 PO (03:50)
[2024-10-16] MEDS ORDERED: Dexamethasone Sod Phos 10 MG/ML 1ML VIAL IV ONE (03:50)
[2024-10-16] MEDS ORDERED: HyDROXyzine HCl 25 MG Tab PO ONE (04:05)
[2024-10-16 04:30] VITALS: BP 153/94
[2024-10-16] MEDS ORDERED: RX Prepack Albuterol 1 PREPACK/6.7 GM INH UD ONE (04:40)
== END 2024-10-16 04:59 | disposition home or self-care (01) ==
LOC: ER 00:26
PROVIDERS: Physician Assistant
DX: J45.901 Unspecified asthma with (acute) exacerbation (principal); R07.81 Pleurodynia; D75.1 Secondary polycythemia; G47.00 Insomnia, unspecified; F17.200 Nicotine dependence, unspecified, uncomplicated; Z79.899 Other long term (current) drug therapy; Z91.048 Other nonmedicinal substance allergy status; Z88.8 Allergy status to other drugs, medicaments and biological substances; Z91.018 Allergy to other foods
CPT/HCPCS: 71045; 80053; 85025; 94640; 94664; 96374; 99285-25; A9270; J1100

== ENCOUNTER 2024-10-21 19:35 | Emergency (ER) | payer OTHER ==
[~2024-10-21] VITALS: Ht 172.7 cm; Wt 114.8 kg
[~2024-10-21 19:35] MED LIST changes: +HYDHCL25 PO
[2024-10-21 20:21] LABS: BASOPHILS ABSOLUTE AUTO 0.07 K/mm3 (0.00-0.23); BASOPHILS PERCENT AUTO 1 % (0-2); EOSINOPHILS ABSOLUTE AUTO 0.41 K/mm3 (0.00-0.68); EOSINOPHILS PERCENT AUTO 6 % (0-6); Hematocrit 51.1 % (37.0-53.0); Hemoglobin 17.5 g/dL (13.5-17.5); IMMATURE GRAN ABSOLUTE AUTO 0.02 K/mm3 (0.00-0.10); IMMATURE GRAN PERCENT AUTO 0 % (0-1); LYMPHOCYTES ABSOLUTE AUTO 2.11 K/mm3 (0.84-5.20); LYMPHOCYTES PERCENT AUTO 30 % (21-46); MONOCYTES ABSOLUTE AUTO 0.56 K/mm3 (0.16-1.47); MONOCYTES PERCENT AUTO 8 % (4-13); Mean Corpuscular HGB 29.9 pg (26.0-34.0); Mean Corpuscular HGB Conc 34.2 g/dL (31.5-36.5); Mean Corpuscular Volume 87 fL (80-100); Mean Platelet Volume 10.5 fL (9.1-12.4); NEUTROPHILS ABSOLUTE AUTO 3.99 K/mm3 (1.96-9.15); NEUTROPHILS PERCENT AUTO 56 % (41-73); Platelet Count 219 K/mm3 (150-400); RDW Coefficient Variation 13.8 % (11.7-14.2); RDW Standard Deviation 44.4 fL (35.1-46.3); Red Blood Cell Count 5.85 M/mm3 (4.30-5.90); White Blood Cell Count 7.16 K/mm3 (4.00-11.30)
[2024-10-21 20:33] LABS: Albumin, Blood 3.7 g/dL (3.4-5.0); Albumin/Globulin Ratio 0.9 (0.8-1.8); Bilirubin, Total 0.7 mg/dL (0.1-1.0); Bun/Creatinine Ratio 17.5 (12.0-20.0); Calcium, Blood 9.1 mg/dL (8.5-10.1); Creatinine, Blood 1.03 mg/dL (0.60-1.20); Potassium, Blood 4.2 mmol/L (3.5-5.5); Total Protein, Blood 7.7 g/dL (6.4-8.2)
[2024-10-22 00:11] VITALS: BP 145/90
== END 2024-10-22 00:11 | disposition home or self-care (01) ==
LOC: ER 19:35
PROVIDERS: Student in an Organized Health Care Education/Training Program
DX: R07.89 Other chest pain (principal); J45.909 Unspecified asthma, uncomplicated; F17.200 Nicotine dependence, unspecified, uncomplicated; Z79.899 Other long term (current) drug therapy; Z91.018 Allergy to other foods; Z88.8 Allergy status to other drugs, medicaments and biological substances; Z91.048 Other nonmedicinal substance allergy status
CPT/HCPCS: 71046; 80053; 84484; 85025; 85379; 93005; 93010; 99285-25